=== PATIENT | female | born 1945 | race Caucasian/White ===

== ENCOUNTER 2023-09-03 06:44 | Emergency (ER) | payer MEDICARE, SELFPAY ==
[2023-09-03 06:50] VITALS: BP 129/80; PULSE 92; RESP 16; TEMP 36.1; O2SAT 98
--- NOTE | 2023-09-03 08:01 | ED.EYEPROB ---
HPI - Eye Problem General Chief complaint: Eye Problems Stated complaint: conjuctivitis in R eye Time Seen by Provider: 09/03/23 07:26 History of Present Illness HPI Narrative: This is a 77-year-old female, with no significant past medical history, who presents to the emergency department complaining of right eye irritation and drainage. The patient states 2 weeks ago she developed a an upper respiratory infection that overall improved. Two days ago, she noted irritation of the right eye described as itching followed by redness and drainage of a purulent looking fluid. She denies eye pain, loss of vision, weakness, numbness or fevers. She has no other complaints at this time. Related Data Allergies Allergy/AdvReac Type Severity Reaction Status Date / Time No Known Allergies Allergy Verified 09/03/23 06:44 Review of Systems Review of Systems: All systems reviewed & are unremarkable except as noted in HPI and below PMFSH Past Medical History Medical History No significant past medical history Surgical History Surgical History No significant past surgical history Social History Social History (Updated 09/03/23 @ 08:06 by Dariusz Cleary MD) Smoking status: Never smoker Alcohol intake: current Substance use: never Exam Narrative: GENERAL: Well-developed, well-nourished, and in no acute distress. HEAD: Normocephalic, atraumatic. EYES: PERRLA and EOMI. Conjunctival injection, greater on the right than the left with a small amount of mucopurulent drainage from the right eye. There is no noted proptosis or pain with eye movement. ENT: Nares clear, no rhinorrhea or epistaxis. Mucous membranes moist. Oropharynx without tonsillar hypertrophy exudate or other lesions. Bilateral TMs pearly courtney nonbulging CHEST: Clear to auscultation. No respiratory distress. No wheezes rales or rhonchi HEART: Regular rate and rhythm. No murmur heard. Normal peripheral pulses. SKIN: Warm, dry, no rash. NEURO: Alert and oriented x3. No focal deficit. Moving all 4 limbs spontaneously PSYCH: Normal mood and affect. Course Course Emergency Course: 08:02 - The patient's exam is consistent with conjunctivitis. Will discharge with ophthalmic antibiotics and recommendation for primary care follow-up. I discussed the findings and recommendations with the patient. Discussed return and emergency precautions including signs/symptoms of orbital cellulitis and vision loss. The patient voiced understanding and agreement with the plan. All questions answered to her satisfaction. Vital Signs Vital signs: Vital Signs Temperature 97.0 F L 09/03/23 06:50 Pulse Rate 92 09/03/23 06:50 Respiratory Rate 16 09/03/23 06:50 Blood Pressure 129/80 09/03/23 06:50 Pulse Oximetry 98 09/03/23 06:50 Temperature 97.0 F L 09/03/23 06:50 Pulse Rate 92 09/03/23 06:50 Respiratory Rate 16 09/03/23 06:50 Blood Pressure 129/80 09/03/23 06:50 Pulse Oximetry 98 09/03/23 06:50 MDM - Eye Problem MDM Narrative Medical decision making narrative: Plan: Some antibiotics, primary care follow-up Differential Diagnosis Differential diagnosis: Likely conjunctivitis and other Discharge Plan Discharge Clinical Impression: Bacterial conjunctivitis, Irritation of right eye Patient Disposition: Home, Self-Care Condition: Stable Instructions: Antibiotic Form Additional Instructions: You were seen in the emergency department. Your exam is consistent with conjunctivitis. I recommend antibiotic eyedrops and follow up with your primary care doctor. If you develop severe eye pain with swallowing, fevers with eye pain, loss of vision, or if you have other emergent concerns for life, limb, or eyesight, return to the emergency department. Patient Language: Green[place]ic Prescriptions: New polymyxin B sulf-trime
== END 2023-09-03 08:26 | disposition home or self-care (01) ==
PROVIDERS: Emergency Provider Preventive Medicine Aerospace Medicine; PCP Internal Medicine
DX: H10.89 Other conjunctivitis (principal)
CPT/HCPCS: 99283